=== PATIENT | female | born 1985 | race Two or more races ===

== ENCOUNTER 2017-06-01 08:32 | Emergency (ER) | payer MEDICAID ==
[~2017-06-01] VITALS: Ht 154.9 cm; Wt 96.6 kg
[~2017-06-01 08:32] MED LIST: [UNRECOGNIZED DRUG - OTHER]; [UNRECOGNIZED DRUG - OTHER]
[2017-06-01 10:21] LABS: Basophils # (auto) 0 uL; Basophils % (auto) 0.5 % (0.0-2.0); Eosinophils # (auto) 0 uL; Eosinophils % (auto) 0.5 % (0.0-7.0); Hematocrit 37.9 % (36.0-46.0); Hemoglobin 12.7 g/dL (12.2-16.2); Lymphocytes # (auto) 2.2 uL; Lymphocytes % (auto) 29.6 % (10.0-50.0); Mean Corpuscular Hemoglobin 29.3 pg (28.0-32.0); Mean Corpuscular Hgb Conc. 33.6 g/dL (32.0-36.0); Mean Corpuscular Volume 87.1 fL (80.0-100.0); Monocytes # (auto) 0.4 uL; Monocytes % (auto) 5.2 % (0.0-12.0); Neutrophils # (auto) 4.7 uL; Neutrophils % (auto) 64.2 % (37.0-80.0); Platelet Count (auto) 192 10^3/uL (140-450); Red Blood Cells 4.35 10^6/uL (4.0-5.20); Red Cell Distribution Width 12.9 % (11.8-14.3); White Blood Cell 7.3 10^3/uL (4.4-10.8)
[2017-06-01 10:41] LABS: Albumin 3.6 g/dL (3.4-5.0); BUN/Creatinine Ratio 42.6; Calcium 9.1 mg/dL (8.5-10.1)
[2017-06-01 10:44] LABS: Bilirubin, Total 0.3 mg/dL (0.2-1.0); Total Protein 7.1 g/dL (6.4-8.2)
[2017-06-01 12:39] VITALS: BP 134/75
== END 2017-06-01 12:48 | disposition home or self-care (01) ==
LOC: ER 08:32
DX: R07.89 Other chest pain (principal); R42 Dizziness and giddiness; E11.9 Type 2 diabetes mellitus without complications; E78.5 Hyperlipidemia, unspecified; Z88.1 Allergy status to other antibiotic agents; Z88.0 Allergy status to penicillin
CPT/HCPCS: 36415; 71046; 80053; 82962; 84484; 85025; 93005